=== PATIENT | male | born 1990 | race Caucasian/White ===

== ENCOUNTER 2021-09-12 16:10 | Emergency (ER) | payer OTHER ==
[2021-09-12 18:00] LABS: Control Line Color Pink/Red Line (Pink/Red)
[2021-09-12 18:01] LABS: HIV-1/2 Antibodies Non Reactive (NonReactive)
[2021-09-13 00:43] LABS: HIV (1/2) Antibody/Antigen Non-Reactive (NonReactive); HIV 1/2 INDEX 0.09 S/CO (<1.00); Hep C IgG Ab Non-Reactive (NonReactive); Hep C Index 0.14 S/CO (0-0.79)
[2021-09-13 00:47] LABS: HBSAB Concentration 835.85 mIU/mL; Hep B Surf AB Reactive (NonReactive)
== END 2021-09-12 16:30 | disposition home or self-care (01) ==
LOC: BURERS 16:10
DX: S60.414A Abrasion of right ring finger, initial encounter (principal); W25.XXXA Contact with sharp glass, initial encounter
CPT/HCPCS: 36415; 86703; 86706; 86803; 87389; 99283